=== PATIENT | female | born 1965 | race Caucasian/White ===

== ENCOUNTER → 2016-03-27 | Outpatient (CLI) | payer BC ==
[~2016-03-27] MED LIST: ALPR.25T PO; DICY20TA57 PO; EVE1000C3 PO; LACT1CAP39 PO; LORA1TAB PO; LVT.05T PO; MSL250CCR PO; MULT-963 PO; OXC10TCR PO; PNT40TEC PO; PRD10T PO; PRM25T PO; ROPI1TAB PO; VALA1POW MC; WRF1T PO
== END ==
LOC: LAB 08:32
PROVIDERS: ATTEND Internal Medicine
DX: D80.3 Selective deficiency of immunoglobulin G [IgG] subclasses (principal)
CPT/HCPCS: 36415; 82784

== ENCOUNTER → 2016-08-27 | Outpatient (CLI) | payer BC ==
[2016-08-27 10:36] LABS: THYROID STIMULATING HORMONE 2.73 UIU/ML (0.35-4.94)
== END ==
LOC: LAB 09:34
PROVIDERS: ATTEND Internal Medicine Gastroenterology
DX: K50.00 Crohn's disease of small intestine without complications (principal); E27.40 Unspecified adrenocortical insufficiency
CPT/HCPCS: 36415; 82533; 84439; 84443

== ENCOUNTER 2016-09-03 17:31 | Emergency (ER) | payer BC ==
[~2016-09-03] VITALS: Ht 162.6 cm; Wt 86.2 kg
--- NOTE | 2016-09-03 18:27 | ED General ---
General Chief Complaint: General Problems/Pain Stated Complaint: CHEST PAINS/JOINT&MUSCLE PAINS/SWOLLEN TICK BITE Nursing Triage Note: Pt c/o fever, headache, nausea, and muscle/joint pain since Wednesday (08/31). Pt also now c/o chest pain that started approx 1.5 hours ago. Pt reports finding a tick on L shoulder this morning. Nursing Sepsis Screen: Possible Sepsis Risk Source of Information: Patient, RN Notes Reviewed Exam Limitations: No Limitations History of Present Illness Time Seen by Provider: 18:20 Initial Comments Patient presents along c/ her c/ c/o SMITH, fever (subjective), nausea, & diffuse joint/muscle aching since Wednesday. 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 Did find a tick on her left shoulder this AM and wonders if it might be related. Patient has extensive PMH including Crohn's which is also apparently flaring. Currently rates her pain a 8/10 and describes it as diffuse/generalized and constant. Timing/Duration: 3-4 Days Severity: Moderate Modifying Factors: improves with Other (none) Associated Systoms: Chest Pain (just BARBER APPRENTICE), Fever/Chills (subjective), Headaches (diffuse), Malaise, No Rash, Weakness, Other (nausea) Allergies and Home Medications Allergies Coded Allergies: Penicillins (Verified Allergy, Severe, HIVES, 06/15/12) hydromorphone HCl (Verified Allergy, Severe, HIVES, 06/15/12) morphine (Verified Allergy, Severe, HIVES, 06/15/12) nalbuphine HCl (Verified Allergy, Severe, RESP FAILURE, 06/15/12) ondansetron HCl (Verified Adverse Reaction, NAUSEA, 06/15/12) Home Medications Alprazolam 0.25 Mg Tablet, 0.25 MG PO TID, #90 (Reported) Dicyclomine Hcl 20 Mg Tablet, 20 MG PO ACHS, (Reported) Doxycycline Hyclate 100 Mg Capsule, 100 MG PO BID for 10 Days, #20 Ref 0 Prescribed by: GABRIELLE JOSE on 09/03/162118 [place]/Linoleic/Gamoleni 1,000 Mg Capsule, 1,000 MG PO HS, (Reported) Lactobacillus Rhamnosus 1 Cap Capsule, 1 CAP PO BID, (Reported) Levothyroxine Sodium 50 Mcg Tablet, 75 MCG PO DAILY, (Reported) Lorazepam 1 Mg Tablet, 1 MG PO HS, (Reported) Mesalamine 250 Mg Cap, 1,000 MG PO QID, (Reported) Multivitamin 1 Each Tablet, 1 EACH PO DAILY, (Reported) Oxycodone Hcl 10 Mg Tab, 5 MG PO Q6H PRN, #20 (Reported) Pantoprazole Sodium 40 Mg Tablet.dr, 1 TAB PO BID, #30 (Reported) Prednisone 10 Mg Tab, 10 MG PO DAILY, (Reported) Promethazine Hcl 25 Mg Tablet, 1 TAB PO QID PRN, #40 (Reported) Ropinirole Hcl 1 Mg Tablet, 1 MG PO HS, (Reported) Valacyclovir Hcl 1 Gm Powder, 1 GM MC DAILY, (Reported) Warfarin Sod 1 Mg Tab, 1 MG PO HS, (Reported) Constitutional: see HPI, fever, malaise, weakness Cardiovascular: see HPI, chest pain Gastrointestinal: see HPI, nausea : No Musculoskeletal: see HPI, joint pain, muscle pain Skin: see HPI, other (tick bite left shoulder) Psychiatric/Neurological: See HPI, Headache, Weakness All Other Systems Reviewed Negative Unless Noted: Yes (Negative excepted noted.) Past Wvslteu-Uqecoj-Zbnavz Hx Patient Social History Alcohol Use: Denies Use Recreational Drug Use: No Smoking Status: Current Everyday Smoker Type Used: Cigarettes Recent Foreign Travel: No Contact w/Someone Who Travel: No Recent Infectious Disease Expo: No Recent Hopitalizations: No Immunizations Up To Date Date of Pneumonia Vaccine: Jan 15, 2011 Date of Influenza Vaccine: Jan 20, 2011 Seasonal Allergies Seasonal Allergies: No Surgeries HX Surgeries: Yes (COLON RESECTION X5) Surgeries: Abdominal, Appendectomy, Gallbladder, Hysterectomy, Tonsillectomy, Tubal Ligation Respiratory Hx Respiratory Disorders: No Cardiovascular Hx Cardiac Disorders: No Neurological Hx Neurological Disorders: No Genitourinary Hx Genitourinary Disorders: No Gastrointestinal Hx Gastrointestinal Disorders: Yes Gastrointestinal Disorders: Gastroesophageal Reflux, Crohns Disease Musculoskeletal Hx Musculoskeletal Disorders: No Endocrine Hx Endocrine Disorders: Yes Endocrine Disorders: Hypothyroidsim Cancer Hx Cancer: No Psychosocial Hx Psychiatric Problems: No Physical Exam Vital Signs Vital Sign - Last 12Hours 09/03/16 17:53 Temp 97.8 Pulse 105 Resp 18 B/P (MAP) 137/86 Pulse Ox 95 O2 Delivery Room Air Capillary Refill : Less Than 3 Seconds General Appearance: WD/WN, Anxious, Mild Distress, Obese HEENT: Normal ENT Inspection Neck: Normal Inspection Respiratory: No Respiratory Distress Cardiovascular: Tachycardia Gastrointestinal: Soft, Other (obese) Rectal: Deferred Neurologic/Psychiatric: Alert, Oriented x3, No Motor/Sensory Deficits, Depressed Affect Skin: Warm/Dry, Other (there is some mild surrounding redness @ the site of the reported tick bite.) Focused Exam Lactic Acid Level Progress/Results/Core Measures Results/Orders Lab Results Laboratory Tests Test 09/03/16 18:55 09/03/16 19:30 Range/Units Urine Color YELLOW Urine Clarity CLEAR Urine pH 5 5-9 Urine Specific [place] 1.005 L 1.016-1.022 Urine Protein NEGATIVE NEGATIVE Urine Glucose (UA) NEGATIVE NEGATIVE Urine Ketones NEGATIVE NEGATIVE Urine Nitrite NEGATIVE NEGATIVE Urine Bilirubin NEGATIVE NEGATIVE Urine Urobilinogen NORMAL NORMAL MG/DL Urine Leukocyte Esterase NEGATIVE NEGATIVE Urine RBC (Auto) NEGATIVE NEGATIVE Urine RBC NONE /HPF Urine WBC NONE /HPF Urine Squamous Epithelial Cells 0-2 /HPF Urine Crystals NONE /LPF Urine Bacteria NONE /HPF Urine Casts NONE /LPF Urine Mucus NEGATIVE /LPF Urine Culture Indicated NO White Blood Count 18.2 H 4.3-11.0 10^3/uL Red Blood Count 4.38 4.35-5.85 10^6/uL Hemoglobin 13.8 11.5-16.0 G/DL Hematocrit 42 35-52 % Mean Corpuscular Volume 95 80-99 FL Mean Corpuscular Hemoglobin 32 25-34 PG Mean Corpuscular Hemoglobin Concent 33 32-36 G/DL Red Cell Distribution Width 14.0 10.0-14.5 % Platelet Count 271 130-400 10^3/uL Mean Platelet Volume 10.9 H 7.4-10.4 FL Neutrophils (%) (Auto) 74 42-75 % Lymphocytes (%) (Auto) 19 12-44 % Monocytes (%) (Auto) 6 0-12 % Eosinophils (%) (Auto) 0 0-10 % Basophils (%) (Auto) 0 0-10 % Neutrophils # (Auto) 13.5 H 1.8-7.8 X 10^3 Lymphocytes # (Auto) 3.5 1.0-4.0 X 10^3 Monocytes # (Auto) 1.0 0.0-1.0 X 10^3 Eosinophils # (Auto) 0.1 0.0-0.3 10^3/uL Basophils # (Auto) 0.1 0.0-0.1 10^3/uL Neutrophils % (Manual) 66 % Lymphocytes % (Manual) 28 % Monocytes % (Manual) 4 % Eosinophils % (Manual) 0 % Basophils % (Manual) 0 % Band Neutrophils 2 % Blood Morphology Comment NORMAL Erythrocyte Sedimentation Rate 5 0-30 MM/HR D-Dimer < 0.27 0.00-0.49 UG/ML Sodium Level 136 135-145 MMOL/L Potassium Level 3.8 3.6-5.0 MMOL/L Chloride Level 103 98-107 MMOL/L Carbon Dioxide Level 18 L 21-32 MMOL/L Anion Gap 15 H 5-14 MMOL/L Blood Urea Nitrogen 8 7-18 MG/DL Creatinine 0.77 0.60-1.30 MG/DL Estimat Glomerular Filtration Rate > 60 BUN/Creatinine Ratio 10 0-20 Glucose Level 86 70-105 MG/DL Lactic Acid Level 1.83 0.50-2.00 MMOL/L Calcium Level 9.4 8.5-10.1 MG/DL Magnesium Level 2.0 1.8-2.4 MG/DL Total Bilirubin 0.2 0.1-1.0 MG/DL Aspartate Amino Transf (AST/SGOT) 24 5-34 U/L Alanine Aminotransferase (ALT/SGPT) 33 0-55 U/L Alkaline Phosphatase 77 40-136 U/L Total Creatine Kinase 46 29-168 U/L Troponin I < 0.30 <0.30 NG/ML C-Reactive Protein High Sensitivity 0.39 0.00-0.50 MG/DL Total Protein 7.1 6.4-8.2 GM/DL Albumin 4.3 3.2-4.5 GM/DL Lipase 39 8-78 U/L My Orders Orders - GABRIELLE JOSE DO Saline Lock/Iv-Start (09/03/16 18:23) Ekg Tracing (09/03/16 18:23) Cbc With Automated Diff (09/03/16 18:23) Comprehensive Metabolic Panel (09/03/16 18:23) Creatine Kinase (09/03/16 18:23) Hs C Reactive Protein (09/03/16 18:23) Fibrin Degradation Products (09/03/16 18:23) Lipase (09/03/16 18:23) Magnesium (09/03/16 18:23) Tick Panel With Lyme Eia (09/03/16 18:23) Troponin I (09/03/16 18:23) Ua Culture If Indicated (09/03/16 18:23) Erythrocyte Sedimentation Rate (09/03/16 18:23) Chest 1 View, Ap/Pa Only (09/03/16 18:23) Lactic Acid Analyzer (09/03/16 18:26) Blood Culture (09/03/16 18:26) Manual Differential (09/03/16 19:30) Dexamethasone Pf Injection (Decadron Pf (09/03/16 21:00) Doxycycline Injection (Vibramycin Inject (09/03/16 21:00) Fentanyl Injection (Sublimaze Injection (09/03/16 21:00) Rx-Hydrocodone/Apap 5-325 Mg (Rx-Vicodin (09/03/16 22:15) Rx-Hydrocodone/Apap 5-325 Mg (Rx-Vicodin (09/03/16 22:12) Heparin (Central Iv Flush) (Heparin (Alessandra (09/03/16 23:38) Medications Given in ED Current Medications Medications Dose Ordered Sig/Mary Route Start Time Stop Time Status Last Admin Dose Admin Acetaminophen/ Hydrocodone Bitart 2 ea Q6H PRN PO 09/03/16 22:15 09/03/16 22:18 DC 09/03/16 22:18 2 EA Dexamethasone Sodium Phosphate 10 mg ONCE ONCE IV 09/03/16 21:00 09/03/16 21:01 DC 09/03/16 21:10 10 MG Doxycycline Hyclate 100 mg/ Sodium Chloride 100 ml @ 100 mls/hr ONCE ONCE IV 09/03/16 21:00 09/03/16 21:59 DC 09/03/16 21:11 100 MLS/HR Fentanyl Citrate 100 mcg ONCE ONCE IVP 09/03/16 21:00 09/03/16 21:01 DC 09/03/16 21:10 100 MCG Vital Signs/I&O Vital Sign - Last 12Hours 09/03/16 09/03/16 17:53 22:18 Temp 97.8 97.8 Pulse 105 84 Resp 18 18 B/P (MAP) 137/86 Pulse Ox 95 97 O2 Delivery Room Air Blood Pressure Mean: 103 ECG Initial ECG Impression Date: Sep 03, 2016 Initial ECG Rhythm: Normal Sinus Initial ECG Intervals: Normal Initial ECG Impression: Normal Initial ECG Comparisson: Unchanged Diagnostic Imaging Diagonstic Imaging: Xray Plain Films/CT/US/NM/MRI: chest (nothing acute per radiologist) Departure Impression Impression: Primary Impression: Tick bite of back Additional Impressions: Headache Myalgia Non-cardiac chest pain Disposition: HOME, SELF-CARE Condition: Stable Departure-Patient Inst. Decision time for Depature: 21:16 Referrals: TONY JOHNSTON JR, DO (PCP/Family) Primary Care Physician Patient Instructions: Chest Pain That Is Not Caused by the Heart (DC) Add. Discharge Instructions: All discharge instructions reviewed with patient and/or family. Voiced understanding. CONTINUE ALL YOUR CURRENT MEDICATIONS. BEGIN THE ANTIBIOTIC PRESCRIBED IN THE AM, 09/04. FOLLOW UP WITH YOUR PCP IF CONTINUED PROBLEMS. Scripts Doxycycline Hyclate (Doxycycline Hyclate) 100 Mg Capsule 100 MG PO BID for TICK BITE for 10 Days, #20 CAP 0 Refills Prov: GABRIELLE JOSE DO 09/03/16 GABRIELLE JOSE DO Sep 03, 2016 18:27
--- NOTE | 2016-09-03 18:58 | Diagnostic Imaging Report ---
INDICATION: Chest pain. TIME: 18:43 p.m. COMPARISON: Comparison is made to the study of 06/15/2012. FINDINGS: There is air trapping, bilaterally. Heart size and pulmonary vascularity are within normal limits. There is no pneumothorax or significant change. IMPRESSION: Predominantly upper lobe air trapping similar to previous study. No new abnormality is detected. Dictated by: Dictated on workstation # [id number]
[2016-09-03 19:10] LABS: BILIRUBIN,URINE NEGATIVE (NEGATIVE); KETONES,URINE NEGATIVE (NEGATIVE); LEUKOCYTE ESTERASE ,URINE NEGATIVE (NEGATIVE); NITRITE,URINE NEGATIVE (NEGATIVE); PH,URINE 5 (5-9); PROTEIN,URINE NEGATIVE (NEGATIVE); UROBILINOGEN,URINE NORMAL (NORMAL)
[2016-09-03 19:19] LABS: SQUAMOUS EPITHELIAL CELL,UR 0-2 /HPF
[2016-09-03 19:42] LABS: BASOPHILS # (AUTO) 0.1 10^3/uL (0.0-0.1); BASOPHILS % (AUTO) 0 % (0-10); EOSINOPHILS # (AUTO) 0.1 10^3/uL (0.0-0.3); EOSINOPHILS % (AUTO) 0 % (0-10); LYMPHOCYTES # (AUTO) 3.5 X 10^3 (1.0-4.0); LYMPHOCYTES % (AUTO) 19 % (12-44); MEAN CORPUSCULAR HEMOGLOBIN 32 PG (25-34); MEAN CORPUSCULAR HGB CONC 33 G/DL (32-36); MEAN CORPUSCULAR VOLUME 95 FL (80-99); MEAN PLATELET VOLUME 10.9 FL (7.4-10.4); MONOCYTES % (AUTO) 6 % (0-12); NEUTROPHILS # (AUTO) 13.5 X 10^3 (1.8-7.8); NEUTROPHILS % (AUTO) 74 % (42-75); PLATELET COUNT 271 10^3/uL (130-400); RED BLOOD COUNT 4.38 10^6/uL (4.35-5.85); WHITE BLOOD COUNT 18.2 10^3/uL (4.3-11.0)
[2016-09-03 19:58] LABS: BAND NEUTROPHILS 2 %; BASOPHILS % (MANUAL) 0 %; EOSINOPHILS % (MANUAL) 0 %; LYMPHOCYTES % (MANUAL) 28 %; NEUTROPHILS % (MANUAL) 66 %
[2016-09-03 20:01] LABS: ERYTHROCYTE SEDIMENTATION RATE 5 MM/HR (0-30)
[2016-09-03 20:04] LABS: ALANINE AMINOTRANSFERASE 33 U/L (0-55); ALBUMIN 4.3 GM/DL (3.2-4.5); ANION GAP 15 MMOL/L (5-14); ASPARTATE AMINO TRANSFERASE 24 U/L (5-34); BILIRUBIN,TOTAL 0.2 MG/DL (0.1-1.0); BLOOD UREA NITROGEN 8 MG/DL (7-18); BUN/CREATININE RATIO 10 (0-20); CALCIUM 9.4 MG/DL (8.5-10.1); CARBON DIOXIDE 18 MMOL/L (21-32); CHLORIDE 103 MMOL/L (98-107); CREATINE KINASE 46 U/L (29-168); CREATININE SERUM 0.77 MG/DL (0.60-1.30); GFR ESTIMATED > 60; GLUCOSE 86 MG/DL (70-105); HEMOLYSIS 20 (0-29); ICTERUS 0.4 (0-1.9); LIPASE 39 U/L (8-78); LIPEMIA 17 (0-49); POTASSIUM 3.8 MMOL/L (3.6-5.0); SODIUM 136 MMOL/L (135-145); TOTAL PROTEIN 7.1 GM/DL (6.4-8.2); hs C REACTIVE PROTEIN 0.39 MG/DL (0.00-0.50)
[2016-09-03 20:10] LABS: TROPONIN I < 0.30 NG/ML (<0.30)
[2016-09-03] MEDS ORDERED: fentaNYL INJECTION 100 MCG/2 ML AMP IVP ONE (21:00)
[2016-09-03] MEDS ORDERED: DEXAMETHASONE PF 10 MG/ML (DECADRON) VIAL IV ONE (21:00)
[2016-09-03] MEDS ORDERED: DOXYCYCLINE INJECTION 100 MG in NS (IVPB) 100 ML IV ONE (21:00)
[2016-09-03] MEDS ORDERED: DOXY100C2 PO (21:19)
[2016-09-03] MEDS ORDERED: RX-HYDROCODONE/APAP 5/325 MG #4 TAB PK PO ONE (22:12)
[2016-09-03] MEDS ORDERED: RX-HYDROCODONE/APAP 5/325 MG #4 TAB PK PO PRN (22:15)
[2016-09-03 22:18] VITALS: BP 137/86
[2016-09-03] MEDS ORDERED: HEParin (CENTRAL IV FLUSH) 500 UNIT/5 ML SYR ONE (23:38)
[2016-09-05 05:55] LABS: LYME AB G M 0.31 Index (0.00-0.89)
[2016-09-07 07:36] LABS: LYME AB INTERP Negative (Negative); TULAREMIA ANTIBODY <1:20
[2016-09-07 13:43] LABS: EHRLICHIA CHAFFEENSIS G ABY <1:16 (<1:16)
[2016-09-07 16:29] LABS: IGG ROCKY MOUNTAIN SPOTTED FEV <1:16 (<1:16); IGM ROCKY MOUNTAIN SPOTTED FEV <1:10 (<1:10)
== END 2016-09-03 22:18 | disposition home or self-care (01) ==
LOC: EDUNIT# 17:31 → ER 17:36
DX: S30.860A Insect bite (nonvenomous) of lower back and pelvis, initial encounter (principal); R07.9 Chest pain, unspecified; R51 Headache; M79.2 Neuralgia and neuritis, unspecified; W57.XXXA Bitten or stung by nonvenomous insect and other nonvenomous arthropods, initial encounter
CPT/HCPCS: 36415; 71010; 80053; 81000; 82550; 83605; 83690; 83735; 84484; 85007; 85027; 85379; 85652; 86141; 86618; 86666; 86668; 86757; 87040; 93005

== ENCOUNTER 2016-11-09 14:05 | Outpatient (RCR) | payer BC ==
[~2016-11-09 14:05] MED LIST changes: +DOXY100C2 PO
== END 2016-12-19 | disposition home or self-care (01) ==
LOC: LAB 14:05
PROVIDERS: ATTEND Internal Medicine Gastroenterology
DX: R19.7 Diarrhea, unspecified (principal)
CPT/HCPCS: 87324; 87449; 89055

== ENCOUNTER → 2017-05-25 | Outpatient (CLI) | payer BC ==
[2017-05-25 15:17] LABS: BASOPHILS % (AUTO) 0 % (0-10); EOSINOPHILS % (AUTO) 0 % (0-10); HEMATOCRIT 40 % (35-52); HEMOGLOBIN 12.9 G/DL (11.5-16.0); LYMPHOCYTES # (AUTO) 1.5 X 10^3 (1.0-4.0); LYMPHOCYTES % (AUTO) 15 % (12-44); MEAN CORPUSCULAR HEMOGLOBIN 31 PG (25-34); MEAN CORPUSCULAR HGB CONC 32 G/DL (32-36); MEAN CORPUSCULAR VOLUME 97 FL (80-99); MEAN PLATELET VOLUME 9.9 FL (7.4-10.4); MONOCYTES # (AUTO) 0.6 X 10^3 (0.0-1.0); MONOCYTES % (AUTO) 6 % (0-12); NEUTROPHILS % (AUTO) 79 % (42-75); PLATELET COUNT 211 10^3/uL (130-400); RED BLOOD COUNT 4.15 10^6/uL (4.35-5.85); RED CELL DISTRIBUTION WIDTH 17.4 % (10.0-14.5); WHITE BLOOD COUNT 10.1 10^3/uL (4.3-11.0)
[2017-05-25 15:41] LABS: ALANINE AMINOTRANSFERASE 38 U/L (0-55); ALBUMIN 4.2 GM/DL (3.2-4.5); ALKALINE PHOSPHATASE 100 U/L (40-136); BILIRUBIN,TOTAL 0.2 MG/DL (0.1-1.0); BUN/CREATININE RATIO 13; CALCIUM 9.3 MG/DL (8.5-10.1); CARBON DIOXIDE 18 MMOL/L (21-32); CHLORIDE 107 MMOL/L (98-107); CREATININE SERUM 0.69 MG/DL (0.60-1.30); GFR ESTIMATED > 60; GLUCOSE 102 MG/DL (70-105); POTASSIUM 4.7 MMOL/L (3.6-5.0); SODIUM 137 MMOL/L (135-145)
== END ==
LOC: LAB 14:44
PROVIDERS: ATTEND Internal Medicine
DX: D80.3 Selective deficiency of immunoglobulin G [IgG] subclasses (principal)
CPT/HCPCS: 36415; 80053; 82728; 82784; 83540; 85025

== ENCOUNTER → 2018-10-05 | Outpatient (CLI) | payer BC ==
--- NOTE | 2018-10-05 13:11 | Diagnostic Imaging Report ---
Indication: Abdominal pain, Crohn's disease KUB 12:45 PM There are shani in the right upper quadrant most likely from a cholecystectomy. There is some radiopaque suture in the left midabdomen. There are surgical shani in the pelvis. Bowel gas pattern is normal. There are no pathologic masses or calcifications seen. Impression: Postsurgical changes in the abdomen. No acute abnormalities seen. Dictated by: Dictated on workstation # [id number]
== END ==
LOC: RAD 12:17
PROVIDERS: ATTEND Internal Medicine Gastroenterology
DX: K50.90 Crohn's disease, unspecified, without complications (principal); Z98.890 Other specified postprocedural states
CPT/HCPCS: 74018

== ENCOUNTER → 2019-01-27 | Outpatient (CLI) | payer MEDICARE | LOC: LAB 06:23 | PROVIDERS: ATTEND Internal Medicine | DX: Z01.89 Encounter for other specified special examinations (principal) | CPT/HCPCS: 36415; 82310; 82330; 83970 ==

== ENCOUNTER → 2019-12-13 | Outpatient (CLI) | payer MEDICARE ==
--- NOTE | 2019-12-13 13:34 | Diagnostic Imaging Report ---
PROCEDURE: US left lower extremity venous. TECHNIQUE: Multiple real-time grayscale images were obtained over the left lower extremity in various projections. Additional duplex Doppler and color Doppler images were also obtained. INDICATION: Recent knee surgery, now with redness and pain in the left calf. FINDINGS: There is no evidence of left lower extremity DVT. Left lower extremity deep venous system shows normal compressibility with normal response to augmentation and Valsalva. There is a fluid collection in the left calf beginning posterior to the knee and extending to the level of mid calf. This measures approximately 2.1 x 2.0 x 6.0 cm. This does show some internal echogenicity consistent with some debris. No internal vascularity is seen. IMPRESSION: 1. No evidence of left lower extremity DVT. 2. Complex fluid collection extending from the posterior knee to the mid calf. This may represent hematoma versus ruptured Vasquez cyst. No other significant abnormality is seen. Dictated by: Dictated on workstation # [id number]
== END ==
LOC: RAD 12:29
PROVIDERS: ATTEND Orthopaedic Surgery
DX: M79.662 Pain in left lower leg (principal); M25.462 Effusion, left knee

== ENCOUNTER → 2021-09-01 | Outpatient (CLI) | payer MEDICARE ==
[~2021-09-01] MED LIST changes: -DOXY100C2 PO; +DOXY100C5 PO
[2021-09-01 14:45] LABS: BASOPHILS # (AUTO) 0.1 10^3/uL (0.0-0.1); BASOPHILS % (AUTO) 1 % (0-10); EOSINOPHILS # (AUTO) 0.3 10^3/uL (0.0-0.3); EOSINOPHILS % (AUTO) 2 % (0-10); HEMATOCRIT 52 % (35-52); HEMOGLOBIN 17.4 g/dL (11.5-16.0); LYMPHOCYTES # (AUTO) 4.4 10^3/uL (1.0-4.0); LYMPHOCYTES % (AUTO) 38 % (12-44); MEAN CORPUSCULAR HEMOGLOBIN 32 pg (25-34); MEAN CORPUSCULAR HGB CONC 34 g/dL (32-36); MEAN CORPUSCULAR VOLUME 94 fL (80-99); MEAN PLATELET VOLUME 10.8 fL (9.0-12.2); MONOCYTES # (AUTO) 0.9 10^3/uL (0.0-1.0); MONOCYTES % (AUTO) 7 % (0-12); NEUTROPHILS # (AUTO) 5.8 10^3/uL (1.8-7.8); NEUTROPHILS % (AUTO) 50 % (42-75); PLATELET COUNT 211 10^3/uL (130-400); WHITE BLOOD COUNT 11.7 10^3/uL (4.3-11.0)
== END ==
LOC: LAB 14:12
PROVIDERS: ATTEND Internal Medicine Gastroenterology
DX: K50.80 Crohn's disease of both small and large intestine without complications (principal)
CPT/HCPCS: 36415; 85025

== ENCOUNTER → 2022-09-11 | Outpatient (CLI) | payer MEDICARE ==
[2022-09-11 07:41] LABS: FREE T4 (FREE THYROXINE) 0.94 NG/DL (0.70-1.48)
== END ==
LOC: LAB 06:27
PROVIDERS: ATTEND Internal Medicine
DX: E03.9 Hypothyroidism, unspecified (principal); E78.2 Mixed hyperlipidemia
CPT/HCPCS: 36415; 80061; 84439; 84443

== ENCOUNTER → 2023-01-12 | Outpatient (CLI) | payer MEDICARE ==
[2023-01-12 08:27] LABS: BASOPHILS # (AUTO) 0.1 10^3/uL (0.0-0.1); BASOPHILS % (AUTO) 1 % (0-10); EOSINOPHILS # (AUTO) 0.2 10^3/uL (0.0-0.3); EOSINOPHILS % (AUTO) 3 % (0-10); HEMATOCRIT 44 % (35-52); HEMOGLOBIN 14.7 g/dL (11.5-16.0); LYMPHOCYTES # (AUTO) 2.4 10^3/uL (1.0-4.0); LYMPHOCYTES % (AUTO) 45 % (12-44); MEAN CORPUSCULAR HEMOGLOBIN 32 pg (25-34); MEAN CORPUSCULAR HGB CONC 34 g/dL (32-36); MEAN CORPUSCULAR VOLUME 95 fL (80-99); MEAN PLATELET VOLUME 11.2 fL (9.0-12.2); MONOCYTES # (AUTO) 0.5 10^3/uL (0.0-1.0); MONOCYTES % (AUTO) 10 % (0-12); NEUTROPHILS # (AUTO) 2.1 10^3/uL (1.8-7.8); NEUTROPHILS % (AUTO) 40 % (42-75); PLATELET COUNT 152 10^3/uL (130-400); WHITE BLOOD COUNT 5.3 10^3/uL (4.3-11.0)
[2023-01-12 08:31] LABS: POTASSIUM 4.2 MMOL/L (3.6-5.0)
[2023-01-12 08:33] LABS: CALCIUM 10.1 MG/DL (8.5-10.1)
[2023-01-12 08:34] LABS: TOTAL PROTEIN 7.5 GM/DL (6.4-8.2)
[2023-01-12 08:36] LABS: BILIRUBIN,TOTAL 0.5 MG/DL (0.1-1.0)
[2023-01-12 08:37] LABS: CREATININE SERUM 0.83 MG/DL (0.60-1.30)
== END ==
LOC: LAB 07:53
PROVIDERS: ATTEND Internal Medicine
DX: Z00.01 Encounter for general adult medical examination with abnormal findings (principal); I10 Essential (primary) hypertension
CPT/HCPCS: 36415; 80053; 80061; 85025